=== PATIENT | male | born 1960 | race American Indian/Alaskan Native ===

== ENCOUNTER 2016-12-21 16:59 | Inpatient (IN) | payer MEDICAID ==
--- NOTE | 2016-12-21 18:15 | C.PDOC ---
History Of Present Illness 56 y/o male presents to the ED requesting alcohol and heroin detox. Pt uses daily, last use this morning 2 bags heroin intranasal, last drink [employer]. Pt also reports feeling depressed and "can't live like this anymore." Pt denies SI, HI or any other complaints. Pt has history of substance abuse and hospitalizations for depression. Pt incarcerated in past for public intoxication. Time Seen by Provider: 12/21/16 17:25 Chief Complaint (Nursing): Substance Abuse History Per: Patient History/Exam Limitations: no limitations Suicide/Self Injury Attempted (Context): None Modifying Factor(s): Alcohol, Narcotics Severity: Moderate Associated Symptoms: Depression. denies: Suicidal Thoughts Involuntary Hold By: None Recent travel outside of the [place]: No Past Medical History Reviewed: Historical Data, Nursing Documentation, Vital Signs Vital Signs: Last Vital Signs Temp 98.0 F 12/21/16 20:09 Pulse 58 L 12/21/16 20:09 Resp 16 12/21/16 20:09 BP 114/72 12/21/16 20:09 Pulse Ox 98 12/21/16 20:09 - Medical History PMH: Asthma, Depression, HTN Family History: States: Unknown Family Hx - Social History Hx Alcohol Use: Yes Hx Substance Use: Yes - Immunization History Hx Influenza Vaccination: No Review Of Systems Except As Marked, All Systems Reviewed And Found Negative. Constitutional: Negative for: Fever Cardiovascular: Negative for: Chest Pain Respiratory: Negative for: Shortness of Breath Gastrointestinal: Negative for: Vomiting, Abdominal Pain Neurological: Negative for: Headache Psych: Positive for: Depression. Negative for: Suicidal ideation Physical Exam - Physical Exam Appears: Non-toxic, No Acute Distress Skin: Warm, Dry, No Rash Head: No Atraumatic, No Normacephalic Nose: Normal Oral Mucosa: Moist Neck: Normal ROM, No Supple Chest: Symmetrical Cardiovascular: Rhythm Regular, No Murmur Respiratory: Normal Breath Sounds, No Rales, No Rhonchi, No Wheezing Extremity: Bilateral: Atraumatic Neurological/Psych: Oriented x3, Normal Speech, Normal Cognition Gait: Steady ED Course And Treatment - Laboratory Results Result Diagrams: 12/21/16 19:02 12/21/16 19:02 Lab Interpretation: No Acute Changes Interpretation Of Abnormal: ETOH 61, UDS + opiates O2 Sat by Pulse Oximetry: 98 (on room air) Pulse Ox Interpretation: Normal Progress Note: Patient evaluated in ED by Crisis. Patient accepted by Psychiatry for admission for depression. Reevaluation Time: 20:15 Reassessment Condition: Unchanged Medical Decision Making Medical Decision Making: Plan: CRISIS evaluation Disposition - Disposition Disposition: HOSPITALIZED Disposition Time: 20:15 Condition: STABLE - POA Present On Arrival: None - Clinical Impression Clinical Impression: Depression, Polysubstance abuse - Scribe Statement The provider has reviewed the documentation as recorded by the Braden Bazan Provider Attestation: All medical record entries made by the Braden were at my direction and personally dictated by me. I have reviewed the chart and agree that the record accurately reflects my personal performance of the history, physical exam, medical decision making, and the department course for this patient. I have also personally directed, reviewed, and agree with the discharge instructions and disposition.
[2016-12-21 19:15] LABS: BASO % 0.8 % (0.0-2.0); EOS # 0.2 K/uL (0.0-0.7); EOS % 2.6 % (0.0-4.0); HEMATOCRIT 45.1 % (35.0-51.0); MEAN CELL VOLUME 89.3 fL (80.0-94.0); MEAN CORPUSCULAR HEMOGLOBIN 29.4 pg (27.0-31.0); MEAN CORPUSCULAR HGB CONC 32.9 g/dL (33.0-37.0); MEAN PLATELET VOLUME 8.1 fL (7.2-11.7); MONO # 0.5 K/uL (0.0-0.8); MONO % 7.4 % (0.0-10.0); NRBC % 0.1 % (0.0-2.0); RED CELL DISTRIBUTION WIDTH 13.2 % (11.5-14.5); WHITE BLOOD COUNT 6.1 K/uL (4.8-10.8)
[2016-12-21 19:23] LABS: CHLORIDE 103 mmol/L (98-107); SODIUM 141 mmol/L (132-148)
[2016-12-21 19:24] LABS: POTASSIUM 3.5 mmol/L (3.6-5.2); URINE BILIRUBIN NEGATIVE (NEGATIVE); URINE BLOOD NEGATIVE (NEGATIVE); URINE COLOR Straw (YELLOW); URINE GLUCOSE (UA) NORMAL (Normal); URINE KETONE NEGATIVE (NEGATIVE); URINE LEUKOCYTE ESTERASE NEG Leu/uL (Negative); URINE PROTEIN NEGATIVE (NEGATIVE); URINE UROBILINOGEN NORMAL mg/dL (0.2-1.0)
[2016-12-21 19:26] LABS: ALB/GLOB RATIO 1.3 (1.0-2.1); ALKALINE PHOSPHATASE 71 U/L (38-126); ALT/SGPT 35 U/L (21-72); AST/SGOT 59 U/L (17-59); BILIRUBIN,TOTAL 0.3 mg/dL (0.2-1.3); BLOOD UREA NITROGEN 12 mg/dL (9-20); CALCIUM 8.7 mg/dl (8.6-10.4); CARBON DIOXIDE 24 mmol/L (22-30); GFR AFRICAN-AMERICAN > 60; GLUCOSE,RANDOM 78 mg/dL (75-110); TOTAL PROTEIN 7.5 g/dL (6.3-8.3)
[2016-12-21 19:27] LABS: ALCOHOL SERUM 61 mg/dl (0-10)
[2016-12-21] MEDS ORDERED: Aluminum Hydroxide/Magnesium Hydroxide Susp (30 mL) PO PRN (23:17)
[2016-12-21] MEDS ORDERED: Benzocaine/Menthol (Cepacol) Lozenge PO PRN (23:17)
[2016-12-22] MEDS: Multiple Vitamins Tab PO SCH (10:38)
--- NOTE | 2016-12-22 23:29 | PCM.PSYCH ---
Initial Psychiatric Evaluation - Initial Psychiatric Evaluation Type of Admission: Voluntary Legal Status: Capacity Chief Complaint (in patient's own words): "I wasn't taking care of myself" History of Present Illness and Precipitating Events: The pt is seen, chart reviewed and case discussed. He is a 56 yo AAM, single with 3 children, lives with his sister in , on disability for "sciatica" He is here for depressive sxs and SI. Also, he was using 10 bags of heroin intranasally x20 years "off and on." Has wdw sxs. Detox 6x, rehab once. He also drinks 4-5 shots plus 4-5 beers. Describes depressive sxs and vague SI w/o any plan. No AH but sees "spots" and is not manic or psychotic No other drugs Past psych hx: One more admission. No meds Family psych hx: Bro used cocaine and had psych illness Medical hx: DM, HTN and BPH Current Medications: Active Medications Generic Name Dose Route Start Last Admin Trade Name Freq PRN Reason Stop Dose Admin Acetaminophen 650 mg 12/21/16 23:17 Tylenol 325mg Tab PO Q4H PRN Fever greater than 101 F Al Hydrox/Mg Hydrox/Simethicone 30 ml 12/21/16 23:17 Maalox 30 Ml PO TID PRN Indigestion / Heartburn Benzocaine/Menthol 1 teodoro 12/21/16 23:17 Cepacol Sore Throat PO QID PRN Sore Throat Chlordiazepoxide 25 mg 12/21/16 22:55 Librium PO Q4H PRN Alcohol Withdrawal Chlordiazepoxide 25 mg 12/22/16 00:00 12/22/16 17:21 Librium PO 12/25/16 23:59 25 mg Q6 IQRA Administration Taper Clonidine HCl 0.1 mg 12/21/16 22:55 Catapres PO Q4H PRN Symptoms of alcohol withdrawl Diphenhydramine HCl 50 mg 12/21/16 22:50 Benadryl PO Q6 PRN Extra Pyramidal Symptoms Folic Acid 1 mg 12/22/16 10:00 12/22/16 10:37 Folic Acid PO 1 mg DAILY IQRA Administration Glipizide 5 mg 12/22/16 07:30 12/22/16 10:38 Glucotrol PO 5 mg ACB IQRA Administration Lisinopril 10 mg 12/22/16 10:00 12/22/16 10:38 Zestril PO 10 mg DAILY IQRA Administration Loperamide HCl 2 mg 12/21/16 23:17 Imodium PO Q8 PRN Diarrhea Methadone HCl 15 mg 12/22/16 10:00 12/22/16 10:37 Methadone PO 12/25/16 09:59 15 mg DAILY IQRA Administration Taper Multivitamins 1 tab 12/22/16 10:00 12/22/16 10:38 Hexavitamin PO 1 tab DAILY IQRA Administration Ondansetron HCl 4 mg 12/21/16 23:17 Zofran Tab PO Q8 PRN Nausea/Vomiting Paroxetine HCl 10 mg 12/22/16 10:00 12/22/16 10:37 Paxil PO 10 mg QAM IQRA Administration Sertraline HCl 25 mg 12/22/16 11:30 Zoloft PO DAILY IQRA Tamsulosin HCl 0.4 mg 12/22/16 18:00 12/22/16 17:22 Flomax PO 0.4 mg QPM IQRA Administration Thiamine HCl 100 mg 12/22/16 10:00 12/22/16 10:38 Vitamin B1 Tab PO 100 mg DAILY IQRA Administration Trazodone HCl 50 mg 12/21/16 21:41 12/22/16 21:42 Desyrel PO 50 mg HS PRN Administration Insomnia Past Psychiatric History - Past Psychiatric History Previous Treatment History: Inpatient Pertinent Medical Hx (Current Medical&Sleep Prob, Allergies): Allergies Allergy/AdvReac Type Severity Reaction Status Date / Time No Known Allergies Allergy Verified 12/21/16 17:38 Advair Diskus 250/50 1 cap INH DAILY 12/21/16 Albuterol HFA 1 puff INH PRN PRN 12/21/16 GlipiZIDE [Glucotrol] 1 tab PO DAILY 12/21/16 Lisinopril [Zestril] 1 tab PO DAILY 12/21/16 Tamsulosin [Flomax] 1 tab PO DAILY 12/21/16 Review of Systems - Psychiatric Psychiatric: Abnormal Sleep Pattern, Anhedonia, Anxiety, Depression. absent: Homicidal Ideation, Paranoia, Suicidal Ideation Mental Status Examination - Personal Presentation Personal Presentation: Looks older than stated age - Affect Affect: Constricted - Motor Activity Motor Activity: Calm - Reliability in Providing Information Reliability in Providing Information: Good - Speech Speech: Organized - Mood Mood: Depressed, Anxious - Formal Thought Process Formal Thought Process: No Impairment - Cognitive Functions Orientation: Person, Place, Situation, Time Sensorium: Alert Attention/Concentration: Attentive Abstract Thinking: [place] Estimate of Intelligence: Average Judgement: Intact, as evidence by: Insight regarding need for hospitalization Memory: Recent intact, as evidence by: Ability to recall events of the day, Remote intact, as evidenced by: Abilit to recall sig. life events - Risk Risk: Withdrawal, Diminished functioning - Strength & Assets Inventory Strength & Assets Inventory: Cooperative DSM 5 DX - DSM 5 DSM 5 Diagnosis: Depressive d/o - unspecified Opioid withdrawal Opioid use d/o - severe Alcohol use d/o - severe - Recommended/Plan of Treatment Treatment Recommendations and Plan of Treatment: Depression: -Zoloft -CBt and support Opioids: - Methadone detox - As needed meds - [place] for abstinence Alcohol: - Librium detox - gabapentin - [place] for abtinence - Vitamins and as needed meds Medical; - Meds continued and labs 33 min Projected ELOS: 5 days Prognosis: good w treatment Discharge Plan and Discharge Criteria: Refer to IOP Consider MAt, ie sbx
[2016-12-23] MEDS: Multiple Vitamins Tab PO SCH (09:59)
--- NOTE | 2016-12-23 14:53 | PCM.PYCHPN ---
Psychiatric Progress Note - Psychiatric Progress Note Patient seen today, length of contact: 16 min Patient Chief Complaint: "I wasn't taking care of myself" Problems Identified/Issues Discussed: The pt is seen, chart reviewed, case discussed with staff. The pt is compliant with medications and reports no side-effects. Symptoms are improving but needs more time to stabilize. After care discussed, wants to go to [facility] or [facility] for either sbx or methadone support and psychoeducation given. NM and CBT used briefly. Medication Change: Yes (detox changes daily) Medical Record Reviewed: Yes Mental Status Examination - Cognitive Function Orientation: Person, Place, Situation, Time Memory: Intact Attention: WNL Concentration: Poor Association: WNL Fund of Knowledge: WNL - Mood Mood: Depressed, Anxious - Affect Affect: Constricted - Speech Speech: Appropriate - Formal Thought Process Formal Thought Process: No Impairment - Suicidal Ideation Suicidal Ideation: No - Homicidal Ideation Homicidal Ideation: No Goal/Treatment Plan - Goal/Treatment Plan Need for Continued Stay: Discharge may exacerbated symptoms, Severe functional impairment Progress Toward Problem(s) and Goals/Treatment Plan: Depression: -Zoloft -CBt and support Opioids: - Methadone detox - As needed meds - [place] for abstinence Alcohol: - Librium detox - gabapentin - [place] for abtinence - Vitamins and as needed meds Medical; - Meds continued and labs Estimated Date of D/C: 12/27/16
[2016-12-24] MEDS: Multiple Vitamins Tab PO SCH (09:16)
--- NOTE | 2016-12-24 12:48 | PCM.PYCHPN ---
Psychiatric Progress Note - Psychiatric Progress Note Patient seen today, length of contact: 16 min Patient Chief Complaint: I am feeling depressed. Problems Identified/Issues Discussed: Patient seen and evaluated, chart reviewed and discussed with the nurse. As per the staff, pt remained isolated, withdrawn and depressed. He reports depressed mood and feelings of hopelessness and helplessness. He reports withdrawal symptoms including shakes, anxiety, headaches, joint pains and hot and cold sweats. He is tolerating withdrawal medications and denies any side effects. Supportive therapy and psychoeducation were given. Medication Change: Yes (detox changes daily) Medical Record Reviewed: Yes Mental Status Examination - Cognitive Function Orientation: Person, Place, Situation, Time Memory: Intact Attention: WNL Concentration: Poor Association: WNL Fund of Knowledge: Poor - Mood Mood: Depressed, Anxious - Affect Affect: Constricted - Speech Speech: Appropriate - Formal Thought Process Formal Thought Process: Paranoia - Suicidal Ideation Suicidal Ideation: No - Homicidal Ideation Homicidal Ideation: No Goal/Treatment Plan - Goal/Treatment Plan Need for Continued Stay: Discharge may exacerbated symptoms, Severe functional impairment Progress Toward Problem(s) and Goals/Treatment Plan: Depressive d/o - unspecified Opioid withdrawal Opioid use d/o - severe Alcohol use d/o - severe - Recommended/Plan of Treatment Treatment Recommendations and Plan of Treatment: Depression: -Zoloft -CBt and support Opioids: - Methadone detox - As needed meds - [place] for abstinence Alcohol: - Librium detox - gabapentin - [place] for abtinence - Vitamins and as needed meds Medical; - Meds continued and labs Estimated Date of D/C: 12/27/16 - Smoking Cessation Smoking Cessation Initiated: No
[2016-12-25 07:35] VITALS: O2SAT 99
[2016-12-25] MEDS: Multiple Vitamins Tab PO SCH (09:13)
[2016-12-25] MEDS ORDERED: Magnesium Hydroxide Susp 30 ml UD PO ONE (20:16)
--- NOTE | 2016-12-25 22:04 | PCM.PYCHPN ---
Psychiatric Progress Note - Psychiatric Progress Note Patient seen today, length of contact: 16 min Patient Chief Complaint: I'm still feeling depressed Problems Identified/Issues Discussed: Patient seen and evaluated, chart reviewed and discussed with the nurse. The patient reports a bit improvement in his mood but still reports depressed mood and remained isolative and withdrawn. He still reports withdrawal symptoms including shakes, anxiety, headaches and sweating. As per the nurse patient remained depressed and withdrawn, however he denies any suicidal ideation or homicidal ideation. He is taking medications and denies any side effects. Supportive therapy and psychoeducation were given. Medication Change: Yes (detox changes daily) Medical Record Reviewed: Yes Mental Status Examination - Cognitive Function Orientation: Person, Place, Situation, Time Memory: Intact Attention: WNL Concentration: Poor Association: WNL Fund of Knowledge: WNL - Mood Mood: Depressed, Anxious - Affect Affect: Constricted - Speech Speech: Appropriate - Formal Thought Process Formal Thought Process: No Impairment - Suicidal Ideation Suicidal Ideation: No - Homicidal Ideation Homicidal Ideation: No Goal/Treatment Plan - Goal/Treatment Plan Need for Continued Stay: Discharge may exacerbated symptoms, Severe functional impairment Progress Toward Problem(s) and Goals/Treatment Plan: Depressive d/o - unspecified Opioid withdrawal Opioid use d/o - severe Alcohol use d/o - severe Depression: -Zoloft -CBt and support Opioids: - Methadone detox - As needed meds - [place] for abstinence Alcohol: - Librium detox - gabapentin - [place] for abtinence - Vitamins and as needed meds Medical; - Meds continued and labs Estimated Date of D/C: 12/27/16 - Smoking Cessation Smoking Cessation Initiated: No
--- NOTE | 2016-12-26 13:40 | PCM.PYCHPN ---
Psychiatric Progress Note - Psychiatric Progress Note Patient seen today, length of contact: 17 min Patient Chief Complaint: I'm still feeling depressed Problems Identified/Issues Discussed: F/u with pt at 14:00. 56 yo M says when he first arrived he was feeling better and happy, however today feels like he did before he got here, depressed and in a slump. Today he is not feeling social, feels like he is going backward with his progress. Before admitted had suicidal ideation without plan, currently denies suicidal ideation. Did not sleep through past 2 nights, falls asleep 5am, stays asleep 20 minutes on and off. Night sweats 2x, negative for last night. Feels people are out to get him but not one particular person can be named. Reports 2 days ago seeing white spots, lasting few seconds. Denies hearing anything that is not there, shortness of breath, headache, cold, congestion, chills. Denies any other complaints, withdrawal symptoms, new side effects to medications. Pt plans after leaving include staying at [facility] and seeing psychiatrist. Medication Change: Yes (detox changes daily, increase Zoloft) Medical Record Reviewed: Yes Mental Status Examination - Cognitive Function Orientation: Person, Place, Situation, Time Memory: Intact Attention: WNL Concentration: Poor Association: WNL Fund of Knowledge: Poor - Mood Mood: Depressed, Anxious - Affect Affect: Constricted - Speech Speech: Appropriate - Formal Thought Process Formal Thought Process: Hallucinations, Delusions - Suicidal Ideation Suicidal Ideation: No - Homicidal Ideation Homicidal Ideation: No Goal/Treatment Plan - Goal/Treatment Plan Need for Continued Stay: Discharge may exacerbated symptoms, Severe functional impairment Progress Toward Problem(s) and Goals/Treatment Plan: Depressive d/o - unspecified Opioid withdrawal Opioid use d/o - severe Alcohol use d/o - severe Depression: -Zoloft -CBt and support Opioids: - Methadone detox - As needed meds - [place] for abstinence Alcohol: - Librium detox - gabapentin - [place] for abtinence - Vitamins and as needed meds Medical; - Meds continued and labs Estimated Date of D/C: 12/27/16 - Smoking Cessation Smoking Cessation Initiated: No
[2016-12-27] MEDS: Multiple Vitamins Tab PO SCH ×2 (10:41→10:43)
--- NOTE | 2016-12-27 10:53 | PCM.PYCHPN ---
Psychiatric Progress Note - Psychiatric Progress Note Patient seen today, length of contact: 16 min Patient Chief Complaint: I am feeling depressed. Problems Identified/Issues Discussed: Patient seen and evaluated, chart reviewed and discussed with the nurse. Pt reports improvement in his mood but remained isolated, withdrawn and depressed. He reports improvement in the withdrawal symptoms but still reports anxiety, joint pains and hot and cold sweats. He is tolerating medications and denies any side effects. Supportive therapy and psychoeducation were given. Medication Change: Yes (detox changes daily, increase zoloft) Medical Record Reviewed: Yes Mental Status Examination - Cognitive Function Orientation: Person, Place, Situation, Time Memory: Intact Attention: WNL Concentration: Poor Association: WNL Fund of Knowledge: Poor - Mood Mood: Depressed, Anxious - Affect Affect: Constricted, Depressed - Speech Speech: Appropriate - Formal Thought Process Formal Thought Process: No Impairment - Suicidal Ideation Suicidal Ideation: No - Homicidal Ideation Homicidal Ideation: No Goal/Treatment Plan - Goal/Treatment Plan Need for Continued Stay: Discharge may exacerbated symptoms, Severe functional impairment Progress Toward Problem(s) and Goals/Treatment Plan: Major Depressive Disorder recurrent severe without psychotic features -CBt and support -Zoloft Opioid use disorder severe - Methadone detox - As needed meds - [place] for abstinence Alcohol use disorder severe - Librium detox - gabapentin - [place] for abtinence - Vitamins and as needed meds Estimated Date of D/C: 12/28/16 - Smoking Cessation Smoking Cessation Initiated: No
[2016-12-28] MEDS: Multiple Vitamins Tab PO SCH (09:26)
--- NOTE | 2016-12-28 13:23 | PCM.PYCHPN ---
Psychiatric Progress Note - Psychiatric Progress Note Patient seen today, length of contact: 16 min Patient Chief Complaint: I am feeling a little better. Problems Identified/Issues Discussed: Patient seen and evaluated, chart reviewed and discussed with the nurse. As per staff patient remained isolated, withdrawn and depressed. However patient reports improvement in his mood and reports improvement in the withdrawal symptoms. He still isolated and withdrawn but denies any suicidal ideation. He is in the processes of stabilization, he is taking medications and denies any side effects. Supportive therapy and psychoeducation were given. Medication Change: Yes (detox changes daily, increase zoloft) Medical Record Reviewed: Yes Mental Status Examination - Cognitive Function Orientation: Person, Place, Situation, Time Memory: Intact Attention: WNL Concentration: Poor Association: WNL Fund of Knowledge: Poor - Mood Mood: Depressed, Anxious - Affect Affect: Constricted, Depressed - Speech Speech: Appropriate - Formal Thought Process Formal Thought Process: No Impairment - Suicidal Ideation Suicidal Ideation: No - Homicidal Ideation Homicidal Ideation: No Goal/Treatment Plan - Goal/Treatment Plan Need for Continued Stay: Discharge may exacerbated symptoms, Severe functional impairment Progress Toward Problem(s) and Goals/Treatment Plan: Major Depressive Disorder recurrent severe without psychotic features -CBt and support -Zoloft to 200 mg daily Opioid use disorder severe - Methadone detox - As needed meds - [place] for abstinence Alcohol use disorder severe - Librium detox - gabapentin - [place] for abtinence - Vitamins and as needed meds Estimated Date of D/C: 12/29/16 - Smoking Cessation Smoking Cessation Initiated: No
[2016-12-29] MEDS: Multiple Vitamins Tab PO SCH (11:21)
--- NOTE | 2016-12-29 13:19 | PCM.PYCHPN ---
Psychiatric Progress Note - Psychiatric Progress Note Patient seen today, length of contact: 17 min Patient Chief Complaint: I am feeling little better. Problems Identified/Issues Discussed: Patient seen and evaluated. Chart reviewed and discussed with the nurse. Patient reports feeling agitated and conflicted about going back to using heroin after discharge. He is also concerned that other medications are interacting with his methadone treatment. Patient also complains of constipation. He denies any homicidal or suicidal ideation or auditory and visual hallucination. He does admit to a new onset of double vision and white spots. Pt does admit to persecutory delusions. Patient reports that he sleeps for 1-2 hours a night. He reports that his appetite is good and he has no side effects to his medications. Supportive therapy and psychoeducation was given. Medication Change: Yes (detox changes daily, increase zoloft) Medical Record Reviewed: Yes Mental Status Examination - Cognitive Function Orientation: Person, Place, Situation, Time Memory: Intact Attention: WNL Concentration: Poor Association: WNL Fund of Knowledge: Poor - Mood Mood: Depressed, Anxious - Affect Affect: Constricted, Depressed - Speech Speech: Appropriate - Formal Thought Process Formal Thought Process: No Impairment - Suicidal Ideation Suicidal Ideation: No - Homicidal Ideation Homicidal Ideation: No Goal/Treatment Plan - Goal/Treatment Plan Need for Continued Stay: Discharge may exacerbated symptoms, Severe functional impairment Progress Toward Problem(s) and Goals/Treatment Plan: Major Depressive Disorder recurrent severe without psychotic features -CBt and support -Zoloft to 200 mg daily Opioid use disorder severe - Methadone detox - As needed meds - [place] for abstinence Alcohol use disorder severe - Librium detox - gabapentin - [place] for abtinence - Vitamins and as needed meds Estimated Date of D/C: 12/29/16
[2016-12-30] MEDS: Multiple Vitamins Tab PO SCH (10:13)
--- NOTE | 2016-12-30 10:24 | PCM.PYCHPN ---
Psychiatric Progress Note - Psychiatric Progress Note Patient seen today, length of contact: 15 min Patient Chief Complaint: I am feeling little better. Problems Identified/Issues Discussed: Patient is seen and evaluated. Chart reviewed and discussed with the nurse. Pt says that his mood has improved since yesterday. He does admit to anxiety and is isolating himself due to preoccupied thoughts of fear of relapsing after discharge. Patient denies suicidal and homicidal ideation, visual or auditory hallucinations or persecutory delusions. Patient is sleeping better and says that Trazodone is helping. His appetite is good. Patient will be attending an outpatient rehabilitation facility and denies any medication side effects. Supportive therapy and psychotherapy were given Medication Change: Yes (Start Remeron, increase Zoloft) Medical Record Reviewed: Yes Mental Status Examination - Cognitive Function Orientation: Person, Place, Situation, Time Memory: Intact Attention: WNL Concentration: Poor Association: WNL Fund of Knowledge: Poor - Mood Mood: Depressed, Anxious - Affect Affect: Constricted, Depressed - Speech Speech: Appropriate - Formal Thought Process Formal Thought Process: No Impairment - Suicidal Ideation Suicidal Ideation: No - Homicidal Ideation Homicidal Ideation: No Goal/Treatment Plan - Goal/Treatment Plan Need for Continued Stay: Discharge may exacerbated symptoms, Severe functional impairment Progress Toward Problem(s) and Goals/Treatment Plan: Major Depressive Disorder recurrent severe without psychotic features -CBT and support -Zoloft 200 mg daily -Remeron 15 mg by mouth daily at bedtime -Trazodone 100 mg by mouth daily at bedtime Opioid use disorder severe - Methadone detox - As needed meds - [place] for abstinence Alcohol use disorder severe - Librium detox - [place] for abtinence - Vitamins and as needed meds Estimated Date of D/C: 12/29/16
[2016-12-31] MEDS: Multiple Vitamins Tab PO SCH (09:16)
[2017-01-01] MEDS: Multiple Vitamins Tab PO SCH (09:05)
--- NOTE | 2017-01-02 01:56 | PCM.PYCHPN ---
Psychiatric Progress Note - Psychiatric Progress Note Patient seen today, length of contact: 15 min Patient Chief Complaint: i didn't give [facility] a chance. i need to work the program Problems Identified/Issues Discussed: SANTY symptom management Medical Problems: nothing acute Diagnostic Results: reviewed Medication Change: No Medical Record Reviewed: Yes Mental Status Examination - Cognitive Function Orientation: Person, Place, Situation, Time Memory: Intact Attention: WNL Concentration: Poor Association: WNL Fund of Knowledge: WNL - Mood Mood: Depressed, Anxious - Affect Affect: Constricted, Depressed - Speech Speech: Appropriate - Formal Thought Process Formal Thought Process: No Impairment - Suicidal Ideation Suicidal Ideation: No - Homicidal Ideation Homicidal Ideation: No Goal/Treatment Plan - Goal/Treatment Plan Need for Continued Stay: Discharge may exacerbated symptoms, Severe functional impairment Progress Toward Problem(s) and Goals/Treatment Plan: not feeling hopeless, helpless or worthless Estimated Date of D/C: 12/29/16 - Smoking Cessation Smoking Cessation Initiated: No
--- NOTE | 2017-01-02 02:00 | PCM.PYCHPN ---
Psychiatric Progress Note - Psychiatric Progress Note Patient seen today, length of contact: 15 min Patient Chief Complaint: ii need to get out of here Problems Identified/Issues Discussed: triggers for relapsed PAWS Medical Problems: nothing acute Diagnostic Results: reviewed DSM 5 Symptoms Update: sleeping but some nightmares Medication Change: No Medical Record Reviewed: Yes Mental Status Examination - Cognitive Function Orientation: Person, Place, Situation, Time Memory: Intact Attention: WNL Concentration: Poor Association: WNL Fund of Knowledge: WNL - Mood Mood: Depressed, Anxious - Affect Affect: Constricted, Depressed - Speech Speech: Appropriate - Formal Thought Process Formal Thought Process: No Impairment - Suicidal Ideation Suicidal Ideation: No - Homicidal Ideation Homicidal Ideation: No Goal/Treatment Plan - Goal/Treatment Plan Need for Continued Stay: Remain at risks for inpatient hospitalization, Discharge may exacerbated symptoms, Severe functional impairment Progress Toward Problem(s) and Goals/Treatment Plan: thinking of future not the past Estimated Date of D/C: 12/29/16 - Smoking Cessation Smoking Cessation Initiated: No
[2017-01-02] MEDS: Multiple Vitamins Tab PO SCH (09:35)
--- NOTE | 2017-01-02 10:32 | PCM.PYCHPN ---
Psychiatric Progress Note - Psychiatric Progress Note Patient seen today, length of contact: 15 min Patient Chief Complaint: I am feeling little better. Problems Identified/Issues Discussed: Patient was seen and evaluated. Chart reviewed and discussed with the nurse. Patient was very pleasant and cooperative and says he hasnt felt this good in a long time. Last night Pt got out of bed to go get a drink of water, then felt dizzy and fell, hitting his head on the kitchen floor. This has never happened before. Today his dizziness has resolved and he denies headaches or acute change in metal status. His double vision has resolved and he denies any new change in vision. Pt denies wanting to hurt himself or others, persecutory delusions or visual and auditory hallucinations. Patient is still isolating himself and reports feeling anxious. His sleep is improved and appetite is good. He denies medication side effects. Supportive therapy and psycheducation were given. Medication Change: No Medical Record Reviewed: Yes Mental Status Examination - Cognitive Function Orientation: Person, Place, Situation, Time Memory: Intact Attention: WNL Concentration: Poor Association: WNL Fund of Knowledge: WNL - Mood Mood: Depressed, Anxious - Affect Affect: Constricted, Depressed - Speech Speech: Appropriate - Formal Thought Process Formal Thought Process: No Impairment - Suicidal Ideation Suicidal Ideation: No - Homicidal Ideation Homicidal Ideation: No Goal/Treatment Plan - Goal/Treatment Plan Need for Continued Stay: Remain at risks for inpatient hospitalization, Discharge may exacerbated symptoms, Severe functional impairment Progress Toward Problem(s) and Goals/Treatment Plan: Major Depressive Disorder recurrent severe without psychotic features -CBT and support -Zoloft 200 mg daily -Remeron 15 mg by mouth daily at bedtime -Trazodone 100 mg by mouth daily at bedtime Opioid use disorder severe - Methadone detox - As needed meds - SD for abstinence Alcohol use disorder severe - Librium detox - SD for abtinence - Vitamins and as needed meds Estimated Date of D/C: 12/29/16
[2017-01-03 08:06] VITALS: BP 113/69; PULSE 61; RESP 19; TEMP 98.2
[2017-01-03] MEDS: Multiple Vitamins Tab PO SCH (09:42)
--- NOTE | 2017-01-03 10:03 | PCM.PYCHDC ---
Mental Status Examination - Mental Status Examination Orientation: Person, Place, Situation, Time Memory: Intact Mood: Neutral Affect: Constricted Speech: Soft Attention: WNL Concentration: WNL Association: WNL Fund of Knowledge: WNL Formal Thought Process: No Impairment Description of patient's judgement and insight: good, fair Psychotic Thoughts and Behaviors: denies any AVH Suicidal Ideation: No Current Homicidal Ideation?: No Discharge Summary - Discharge Note Reason for Hospitalization: He is a 56 yo AAM, single with 3 children, lives with his sister in , on disability for "sciatica" He is here for depressive sxs and SI. Also, he was using 10 bags of heroin intranasally x20 years "off and on." Has wdw sxs. Detox 6x, rehab once. He also drinks 4-5 shots plus 4-5 beers. Describes depressive sxs and vague SI w/o any plan. No AH but sees "spots" and is not manic or psychotic No other drugs Past psych hx: One more admission. No meds Laboratory Data: Abnormal Lab Results 01/03/17 07:43 POC Glucose (mg/dL) 129 H Consultations:: List each consultation separately and include: 1. Reason for request. 2. Findings. 3. Follow-up Summary of Hospital Course include:: 1. Description of specific treatment plan utilized for patients during their course of treatmen. 2. Summarize the time- course for resolution of acute symptoms and/or regressed behaviors. 3. Describe issues identified and worked on during hospitalization. 4. Describe medication utilized. 5. Describe medical problems identified and treated. 6. Reassessment of suicide risk Summary of Hospital Course: During the course of his stay, patient (pt) started progressively improving and he no longer remained irritable, depressed, and suicidal. His mood was improved and he started attending groups and meetings and started socializing. Patient denied any feelings of hopelessness, helplessness, and worthlessness, denied any problem with the sleep or appetite, denied suicidal ideation or homicidal ideation. Pt denied any auditory or visual hallucinations. Some changes were made in his current medications and patient was discharged on following medications. He tolerated these medications very well and denied any side effects. - Final Diagnosis (DSM 5) Condition upon Discharge: STABLE DSM 5: Major Depressive Disorder recurrent severe without psychotic features Opioid use disorder severe Alcohol use disorder severe Disposition: HOME/ ROUTINE Follow-up Treatment Plan: Education: Pt was educated and counseled about the risks and benefits of taking and not taking medications. Pt was educated and counseled about the risks of drinking and abusing drugs. Pt was educated and counseled to go to the ER or call 911 if pt develop suicidal ideation or homicidal ideation, worsening of symptoms or severe side effects of the meds. Prescriptions/Medication Reconciliation: GlipiZIDE [Glucotrol] 5 mg PO ACB #30 tab Lisinopril [Zestril] 10 mg PO DAILY #30 tab Mirtazapine [Remeron] 15 mg PO HS #30 tab Sertraline [Zoloft] 100 mg PO DAILY #60 tab Tamsulosin [Flomax] 0.4 mg PO QPM #30 cap traZODone [Desyrel] 100 mg PO HS PRN #30 tab PRN Reason: Insomnia - Smoking Cessation Smoking Cessation Medication prescribed: No - Antipsychotic Medications Pt discharged on 2 or more routine antipsychotic medications: No
== END 2017-01-03 12:45 | disposition home or self-care (01) | DRG 430 ==
LOC: C.ER 16:59 → C.5E 20:16
PROVIDERS: ADMIT Psychiatry & Neurology Psychiatry; ATTEND Psychiatry & Neurology Psychiatry
PROC: HZ2ZZZZ Detoxification Services for Substance Abuse Treatment (ICD-10-PCS; principal; 2016-12-21)
PROC: HZ32ZZZ Individual Counseling for Substance Abuse Treatment, Cognitive-Behavioral (ICD-10-PCS; 2016-12-21)
PROC: HZ36ZZZ Individual Counseling for Substance Abuse Treatment, Psychoeducation (ICD-10-PCS; 2016-12-21)
PROC: HZ59ZZZ Individual Psychotherapy for Substance Abuse Treatment, Supportive (ICD-10-PCS; 2016-12-21)
DX: F33.2 Major depressive disorder, recurrent severe without psychotic features (principal); R45.851 Suicidal ideations; E11.9 Type 2 diabetes mellitus without complications; F10.230 Alcohol dependence with withdrawal, uncomplicated; F11.23 Opioid dependence with withdrawal; J45.909 Unspecified asthma, uncomplicated; I10 Essential (primary) hypertension; M54.30 Sciatica, unspecified side; N40.0 Benign prostatic hyperplasia without lower urinary tract symptoms; Y90.3 Blood alcohol level of 60-79 mg/100 ml

== ENCOUNTER 2017-05-15 13:15 | Inpatient (IN) | payer MEDICAID ==
[2017-05-15 14:15] LABS: BASO % 0.9 % (0.0-2.0); EOS # 0.1 K/uL (0.0-0.7); EOS % 1.8 % (0.0-4.0); HEMATOCRIT 42.9 % (35.0-51.0); LYMPH # 1.6 K/uL (1.0-4.3); LYMPH % 39.5 % (20.0-40.0); MEAN CELL VOLUME 88.1 fL (80.0-94.0); MEAN CORPUSCULAR HEMOGLOBIN 29.7 pg (27.0-31.0); MEAN CORPUSCULAR HGB CONC 33.7 g/dL (33.0-37.0); MEAN PLATELET VOLUME 7.3 fL (7.2-11.7); MONO # 0.4 K/uL (0.0-0.8); MONO % 10.4 % (0.0-10.0); NRBC % 0.1 % (0.0-2.0)
[2017-05-15 14:17] LABS: RBC URINE 1 /hpf (0-3); URINE BILIRUBIN NEGATIVE (NEGATIVE); URINE BLOOD NEGATIVE (NEGATIVE); URINE COLOR Yellow (YELLOW); URINE GLUCOSE (UA) NORMAL (Normal); URINE KETONE NEGATIVE (NEGATIVE); URINE LEUKOCYTE ESTERASE NEG Leu/uL (Negative); URINE PROTEIN NEGATIVE (NEGATIVE); WBC URINE 1 /hpf (0-5)
[2017-05-15 14:33] LABS: ALB/GLOB RATIO 1.3 (1.0-2.1); ALCOHOL SERUM < 10 mg/dl (0-10); ALKALINE PHOSPHATASE 59 U/L (38-126); ALT/SGPT 47 U/L (21-72); AST/SGOT 38 U/L (17-59); BILIRUBIN,TOTAL 0.6 mg/dL (0.2-1.3); BLOOD UREA NITROGEN 14 mg/dL (9-20); CALCIUM 8.9 mg/dl (8.6-10.4); CARBON DIOXIDE 27 mmol/L (22-30); CHLORIDE 102 mmol/L (98-107); GFR AFRICAN-AMERICAN > 60; GLUCOSE,RANDOM 104 mg/dL (75-110); POTASSIUM 4.1 mmol/L (3.6-5.2); SODIUM 142 mmol/L (132-148)
--- NOTE | 2017-05-15 16:35 | C.PDOC ---
History Of Present Illness 56 y/o male presents to the ED presents to the ED requesting heroin and detox. Patient states last use was last night. Patient states he has already been prescreened. Patient reports feeling nauseous and shaky. Otherwise, he denies fever, chills, suicidal/homicidal ideation. Time Seen by Provider: 05/15/17 13:50 Chief Complaint (Nursing): Substance Abuse History Per: Patient History/Exam Limitations: no limitations Onset/Duration Of Symptoms: Hrs Current Symptoms Are (Timing): Still Present Suicide/Self Injury Attempted (Context): None Modifying Factor(s): Alcohol, Other (heroin ) Associated Symptoms: denies: Suicidal Thoughts, Suicidal Plan Involuntary Hold By: None Recent travel outside of the [place]: No Additional History Per: Patient Past Medical History Reviewed: Historical Data, Nursing Documentation, Vital Signs Vital Signs: Last Vital Signs Temp 98.2 F 05/15/17 19:45 Pulse 63 05/15/17 19:45 Resp 18 05/15/17 19:45 BP 107/67 05/15/17 19:45 Pulse Ox 98 05/15/17 19:45 - Medical History PMH: Asthma, Depression, Diabetes (per pt), Hepatitis (C), HTN Surgical History: No Surg Hx - [facility] Procedures DETOXIFICATION SERVICES FOR SUBSTANCE ABUSE TREATMENT (12/21/16) INDIV INSTRUMENT AND CONTROLS TECHNICIAN FOR SUBSTANCE ABUSE TREATMENT, PSYCHOEDUCATION (12/21/16) INDIV INSTRUMENT AND CONTROLS TECHNICIAN FOR SUBSTANCE ABUSE, COGNITIVE BEHAVIORAL (12/21/16) INDIV PSYCHOTHERAPY FOR SUBSTANCE ABUSE TREATMENT, SUPPORT (12/21/16) Family History: States: Unknown Family Hx - Social History Hx Alcohol Use: Yes Hx Substance Use: Yes - Immunization History Hx Influenza Vaccination: No Review Of Systems Psych: Positive for: Withdrawal, Other (+heroin and alcohol detox ) Physical Exam - Physical Exam Appears: Non-toxic, No Acute Distress Skin: Normal Color, Warm, Dry Eye(s): bilateral: Normal Inspection Oral Mucosa: Moist Neck: Normal ROM, Supple Chest: Symmetrical, No Deformity, No Tenderness Cardiovascular: Rhythm Regular, No Murmur Respiratory: Normal Breath Sounds, No Rales, No Rhonchi, No Wheezing Back: Normal Inspection, No Vertebral Tenderness, No Paraspinal Tenderness Extremity: Normal ROM, Capillary Refill (less than 2 seconds ) Neurological/Psych: Normal Speech, Normal Cognition Gait: Steady ED Course And Treatment - Laboratory Results Result Diagrams: 05/15/17 14:07 05/15/17 14:07 O2 Sat by Pulse Oximetry: 100 (on RA) Pulse Ox Interpretation: Normal Progress Note: labs ordered and reviewed. Patient received Librium PO and Catapres PO. Patient was medically cleared and accepted under Dr. Chao's care. Disposition - Disposition Disposition: HOSPITALIZED Disposition Time: 16:33 Condition: STABLE - Clinical Impression Clinical Impression: Drug dependence, Alcohol dependence - PA / COMPOSING MACHINE OPERATOR / Resident Statement MD/DO has reviewed & agrees with the documentation as recorded. - Scribe Statement The provider has reviewed the documentation as recorded by the Scribe (Ana Maria More) All medical record entries made by the Scribe were at my direction and personally dictated by me. I have reviewed the chart and agree that the record accurately reflects my personal performance of the history, physical exam, medical decision making, and the department course for this patient. I have also personally directed, reviewed, and agree with the discharge instructions and disposition.
--- NOTE | 2017-05-15 16:47 | PCM.BM ---
<Mandie Huggins - Last Filed: 05/15/17 16:46> Treatment Plan Problems - Problems identified on initial assessmt Potential for alcohol withdrawal Date Initiated: 05/15/17 Time Initiated: 16:46 Assessment reference: NA Status: Active Priority: 1 Potential for opiate withdrawal Date Initiated: 05/15/17 Time Initiated: 16:47 Assessment reference: NA Status: Active Priority: 2 Treatment assets and liabiliti Patient Assests: ADL independent, negotiates basic needs, cognitively intact Patient Liabilities: substance abuse, medical problems - Milieu Protocol Maintain good personal hygiene: daily Encourage regular showers, daily Remind patient to perform daily oral care, daily Assist patient to perform ADL's Conduct patient checks and document Observation sheet: Q15 minutes Maintain personal safety: every shift Educate patient to report safety concerns to staff, every shift Monitor environment for contraband/sharps Medication safety: Monitor for expected outcome, potential side effects: every shift, Assess barriers to learning: every shift, Assess readiness for medication education: every shift <Elizabeth Sheets - Last Filed: 05/16/17 14:06> Family Contact Family involvement: Famliy/SO not involved Family contact: Patient declines to allow family contact at present - Goals for Treatment Patient goals for treatment: Complete detox and transition to outpatient co- occurring treatment program. Discharge/Continuing Care - Education Needs Education Needs: Patient Medication, Patient Diagnosis/Disease Process, Patient Coping Skills, Patient Anger Management skills, Patient Placement options, Patient Community resources - Discharge Discharge Criteria: No longer exhibiting s/s of withdrawal, Reduction of target symptoms Discharge to:: With Family - Treatment Team Participation Patient/Family/SO Statement: 05/16/17 14:08 "I wanna go to the program across the street to have my meds taken care of". Discussed with Family/SO: No Was Patient/Family/SO present at Treatment Team Meeting: Yes <Lilliam Chao - Last Filed: 05/17/17 08:52> - Diagnosis (1) Opioid use disorder, severe, dependence Status: Acute Interventions: 05/17/17 08:51 * Assess 7x/week regarding severity of withdrawal * Educate regarding risks, benefits, side effects and alternatives of medications * Use Motivational Interviewing for abstinence * Use CBT for relapse prevention * Medication management for withdrawal symptoms * Encourage medication assisted treatment * (2) Alcohol dependence Status: Acute Interventions: 05/17/17 08:51 * Assess 7x/week regarding severity of withdrawal * Educate regarding risks, benefits, side effects and alternatives of medications * Use Motivational Interviewing for abstinence * Use CBT for relapse prevention * Medication management for withdrawal symptoms * Encourage medication assisted treatment *
[2017-05-15] MEDS ORDERED: Buprenorphine Hydrochloride 2 mg SL ONE ×2 (17:24→18:30)
[2017-05-16] MEDS: Buprenorphine Hydrochloride 2 mg SL SCH (09:39)
--- NOTE | 2017-05-16 12:34 | PCM.PSYCH ---
Initial Psychiatric Evaluation - Initial Psychiatric Evaluation Type of Admission: Voluntary Legal Status: Capacity Chief Complaint (in patient's own words): "I relapsed" History of Present Illness and Precipitating Events: The pt is seen, chart reviewed and case discussed. He is known from previous admission. He is a 56 yo AAM, single with 3 children, still lives with his sister in , on disability for "sciatica" He is here for opioid detox this time. He claims he was using 10 bags of heroin intranasally x20 years "off and on," and that he relapsed 2-3 days after discharge from last time. He admits to not going to any program. Has wdw sxs. Detox 6x, rehab once. He also used to drink 4-5 shots plus 4-5 beers but he denies it now. Describes depressive sxs but mild and agrees to take zoloft again No jorge or psychosis No other drugs Past psych hx: Two admissions. No suicide attempts Family psych hx: Bro used cocaine and had psych illness Medical hx: DM, HTN and BPH Current Medications: Active Medications Generic Name Dose Route Start Last Admin Trade Name Freq PRN Reason Stop Dose Admin Aspirin 81 mg 05/16/17 10:00 05/16/17 09:35 Aspirin Chewable PO 81 mg DAILY IQRA Administration Buprenorphine HCl 8 mg 05/16/17 10:00 05/16/17 09:39 Subutex SL 05/20/17 09:59 8 mg DAILY IQRA Administration Taper Glyburide 5 mg 05/16/17 10:00 05/16/17 09:36 Micronase PO 5 mg QAM IQRA Administration Hydroxyzine HCl 50 mg 05/15/17 17:34 Atarax PO Q6H PRN Anxiety Ibuprofen 600 mg 05/15/17 17:26 Motrin Tab PO Q6H PRN Pain, moderate (4-7) Lisinopril 10 mg 05/16/17 10:00 05/16/17 09:36 Zestril PO 10 mg DAILY IQRA Administration Metformin HCl 500 mg 05/15/17 18:00 05/16/17 09:35 Glucophage PO 500 mg BID IQRA Administration Mirtazapine 30 mg 05/16/17 22:00 Remeron PO HS IQRA Sertraline HCl 50 mg 05/16/17 10:00 05/16/17 09:35 Zoloft PO 50 mg DAILY IQRA Administration Tamsulosin HCl 0.8 mg 05/15/17 22:00 05/15/17 21:29 Flomax PO 0.8 mg HS IQRA Administration Trazodone HCl 100 mg 05/15/17 17:25 05/15/17 21:28 Desyrel PO 100 mg HS PRN Administration Insomnia Past Psychiatric History - Past Psychiatric History Previous Treatment History: Inpatient Pertinent Medical Hx (Current Medical&Sleep Prob, Allergies): Allergies Allergy/AdvReac Type Severity Reaction Status Date / Time No Known Allergies Allergy Verified 05/15/17 13:20 Advair Diskus 250/50 1 cap INH DAILY 12/21/16 Albuterol HFA 1 puff INH PRN PRN 12/21/16 GlipiZIDE [Glucotrol] 1 tab PO DAILY 12/21/16 Lisinopril [Zestril] 1 tab PO DAILY 12/21/16 Tamsulosin [Flomax] 1 tab PO DAILY 12/21/16 GlipiZIDE [Glucotrol] 5 mg PO ACB #30 tab 01/03/17 Lisinopril [Zestril] 10 mg PO DAILY #30 tab 01/03/17 Mirtazapine [Remeron] 15 mg PO HS #30 tab 01/03/17 Sertraline [Zoloft] 100 mg PO DAILY #60 tab 01/03/17 Tamsulosin [Flomax] 0.4 mg PO QPM #30 cap 01/03/17 traZODone [Desyrel] 100 mg PO HS PRN #30 tab 01/03/17 Review of Systems - Psychiatric Psychiatric: Abnormal Sleep Pattern, Anhedonia, Anxiety, Difficulty Concentrating, Irritability. absent: Hallucinations, Homicidal Ideation, Suicidal Ideation Mental Status Examination - Personal Presentation Personal Presentation: Looks stated age - Affect Affect: Constricted - Motor Activity Motor Activity: Calm - Reliability in Providing Information Reliability in Providing Information: Good - Speech Speech: Organized - Mood Mood: Anxious - Formal Thought Process Formal Thought Process: No Impairment - Cognitive Functions Orientation: Person, Place, Situation, Time Sensorium: Alert Attention/Concentration: Attentive Estimate of Intelligence: Average Judgement: Intact, as evidence by: Insight regarding need for hospitalization Memory: Recent intact, as evidence by: Ability to recall events of the day, Remote intact, as evidenced by: Abilit to recall sig. life events - Risk Risk: Withdrawal, Diminished functioning - Strength & Assets Inventory Strength & Assets Inventory: Cooperative - Limitations Limitations: Living alone, Other DSM 5 DX - DSM 5 DSM 5 Diagnosis: Opioid withdrawal Opioid use d/o - severe Depressive d/o - unspecified Alcohol use d/o in early remission - Recommended/Plan of Treatment Treatment Recommendations and Plan of Treatment: Opioids: Subutex detox As needed medications Gabapentin for augmentation Attend groups and activities Supportive therapy and psychoeducation [place] for abstinence CBT for relapse prevention Encourage MAT Refer to rehab or IOP Attend self-help groups as well Alcohol: CBT for relapse prevention medical issues: Continue meds Consult as needed Depressive d/o: He agreed to resume zoloft CBT and supportive tx 34 min Projected ELOS: 4-5 days Prognosis: good with treatment - Smoking Cessation Smoking Cessation Initiated: Yes
[2017-05-17] MEDS: Buprenorphine Hydrochloride 2 mg SL SCH (10:09)
--- NOTE | 2017-05-17 11:22 | PCM.PYCHPN ---
Psychiatric Progress Note - Psychiatric Progress Note Patient seen today, length of contact: 16 min Patient Chief Complaint: "I am so so" Problems Identified/Issues Discussed: He is seen, chart reviewed and case discussed Support and psychoed given Detox is improving After care discussed [place] and CBT used Medication Change: Yes Medical Record Reviewed: Yes Mental Status Examination - Cognitive Function Orientation: Person, Place, Situation, Time Memory: Intact Attention: WNL Concentration: WNL Association: WNL Fund of Knowledge: WNL - Mood Mood: Anxious - Affect Affect: Constricted - Speech Speech: Appropriate - Formal Thought Process Formal Thought Process: No Impairment - Suicidal Ideation Suicidal Ideation: No - Homicidal Ideation Homicidal Ideation: No Goal/Treatment Plan - Goal/Treatment Plan Need for Continued Stay: Discharge may exacerbated symptoms, Severe functional impairment Progress Toward Problem(s) and Goals/Treatment Plan: Opioids: Subutex detox As needed medications Gabapentin for augmentation Attend groups and activities Supportive therapy and psychoeducation [place] for abstinence CBT for relapse prevention Encourage MAT Refer to rehab or IOP Attend self-help groups as well Alcohol: CBT for relapse prevention medical issues: Continue meds Consult as needed Depressive d/o: He agreed to resume zoloft CBT and supportive tx Estimated Date of D/C: 05/19/17
[2017-05-17] MEDS: Aritificial Tears (15ml) OU SCH ×2 (14:00→17:07)
[2017-05-17] MEDS ORDERED: Magnesium Hydroxide Susp 30 ml UD PO ONE (21:39)
[2017-05-18] MEDS: Aritificial Tears (15ml) OU SCH ×3 (09:33→19:12)
[2017-05-18] MEDS: Buprenorphine Hydrochloride 2 mg SL SCH (09:36)
--- NOTE | 2017-05-18 12:43 | PCM.PYCHPN ---
Psychiatric Progress Note - Psychiatric Progress Note Patient seen today, length of contact: 16 min Patient Chief Complaint: "I have anxiety" Problems Identified/Issues Discussed: The pt is seen, chart reviewed, case discussed with staff. Support given, CBT and [place] used briefly No new symptoms reported, improving slowly and needs more time No SEs from medications, risks discussed. After care discussed Medication Change: Yes Medical Record Reviewed: Yes Mental Status Examination - Cognitive Function Orientation: Person, Place, Situation, Time Memory: Intact Attention: WNL Concentration: WNL Association: WNL Fund of Knowledge: WNL - Mood Mood: Anxious - Affect Affect: Constricted - Speech Speech: Appropriate - Formal Thought Process Formal Thought Process: No Impairment - Suicidal Ideation Suicidal Ideation: No - Homicidal Ideation Homicidal Ideation: No Goal/Treatment Plan - Goal/Treatment Plan Need for Continued Stay: Discharge may exacerbated symptoms, Severe functional impairment Progress Toward Problem(s) and Goals/Treatment Plan: Opioids: Subutex detox As needed medications Gabapentin for augmentation Attend groups and activities Supportive therapy and psychoeducation [place] for abstinence CBT for relapse prevention Encourage MAT Refer to rehab or IOP Attend self-help groups as well Alcohol: CBT for relapse prevention medical issues: Continue meds Consult as needed Depressive d/o: He agreed to resume zoloft CBT and supportive tx Estimated Date of D/C: 05/19/17
[2017-05-18 16:42] VITALS: RESP 18
[2017-05-19] MEDS: Aritificial Tears (15ml) OU SCH (10:02)
[2017-05-19] MEDS: Buprenorphine Hydrochloride 2 mg SL SCH (10:03)
[2017-05-19 13:16] VITALS: BP 109/75; PULSE 67; TEMP 98.5; O2SAT 96
--- NOTE | 2017-05-19 17:35 | PCM.PYCHDC ---
Mental Status Examination - Mental Status Examination Orientation: Person Discharge Summary - Discharge Note Consultations:: List each consultation separately and include: 1. Reason for request. 2. Findings. 3. Follow-up Summary of Hospital Course include:: 1. Description of specific treatment plan utilized for patients during their course of treatmen. 2. Summarize the time- course for resolution of acute symptoms and/or regressed behaviors. 3. Describe issues identified and worked on during hospitalization. 4. Describe medication utilized. 5. Describe medical problems identified and treated. 6. Reassessment of suicide risk Summary of Hospital Course: The patient was admitted and started on treatment with psychotherapy, support, psychoeducation and medications. [place] and CBT used. The patient attended groups and activities, as well as milieu therapy. All the risks and benefits of medications are discussed and the patient understood and agreed. The patient improved with the treatments provided. After care discussed with the patient. - Diagnosis (1) Opioid use disorder, severe, dependence Status: Acute (2) Alcohol dependence Status: Acute - Final Diagnosis (DSM 5) Condition upon Discharge: STABLE DSM 5: Opioid withdrawal Opioid use d/o - severe Depressive d/o - unspecified Alcohol use d/o in early remission Disposition: HOME/ ROUTINE Follow-up Treatment Plan: Continue below medications after discharge. Follow after care plan as discussed. Use relapse prevention skills. Return to ED or call 911 if suicidal, homicidal or symptoms relapse. Stay away from stress, alcohol and drugs. See primary doctor once a year. Prescriptions/Medication Reconciliation: Mirtazapine [Remeron] 30 mg PO HS #30 tab traZODone [Desyrel] 100 mg PO HS PRN #30 tab PRN Reason: Insomnia
== END 2017-05-19 13:50 | disposition home or self-care (01) | DRG 745 ==
LOC: C.ER 13:15 → C.7D 16:32
PROVIDERS: ADMIT Psychiatry & Neurology Psychiatry; ATTEND Psychiatry & Neurology Psychiatry
PROC: HZ2ZZZZ Detoxification Services for Substance Abuse Treatment (ICD-10-PCS; principal; 2017-05-16)
PROC: HZ52ZZZ Individual Psychotherapy for Substance Abuse Treatment, Cognitive-Behavioral (ICD-10-PCS; 2017-05-16)
PROC: HZ42ZZZ Group Counseling for Substance Abuse Treatment, Cognitive-Behavioral (ICD-10-PCS; 2017-05-16)
PROC: HZ59ZZZ Individual Psychotherapy for Substance Abuse Treatment, Supportive (ICD-10-PCS; 2017-05-16)
PROC: HZ56ZZZ Individual Psychotherapy for Substance Abuse Treatment, Psychoeducation (ICD-10-PCS; 2017-05-16)
PROC: HZ46ZZZ Group Counseling for Substance Abuse Treatment, Psychoeducation (ICD-10-PCS; 2017-05-16)
DX: F11.23 Opioid dependence with withdrawal (principal); F10.230 Alcohol dependence with withdrawal, uncomplicated; Y90.0 Blood alcohol level of less than 20 mg/100 ml; F32.9 Major depressive disorder, single episode, unspecified

== ENCOUNTER 2018-08-15 16:59 | Inpatient (IN) | payer MEDICAID ==
[2018-08-15 18:31] LABS: BASO % 0.6 % (0.0-2.0); EOS # 0.1 K/uL (0.0-0.7); EOS % 1.4 % (0.0-4.0); HEMOGLOBIN 15.1 g/dL (12.0-18.0); LYMPH # 3.5 K/uL (1.0-4.3); LYMPH % 49.6 % (20.0-40.0); MEAN CORPUSCULAR HEMOGLOBIN 30.1 pg (27.0-31.0); MEAN CORPUSCULAR HGB CONC 33.5 g/dL (33.0-37.0); MEAN PLATELET VOLUME 7.9 fL (7.2-11.7); MONO # 0.6 K/uL (0.0-0.8); MONO % 7.8 % (0.0-10.0); NEUT # 2.9 K/uL (1.8-7.0); NEUT % 40.6 % (50.0-75.0); RBC 5.01 Mil/uL (4.40-5.90)
[2018-08-15 18:48] LABS: ALB/GLOB RATIO 1.4 (1.0-2.1); ALBUMIN 4.3 g/dL (3.5-5.0); ALT/SGPT 70 U/L (21-72); AST/SGOT 76 U/L (17-59); BLOOD UREA NITROGEN 17 mg/dL (9-20); CALCIUM 9.1 mg/dl (8.6-10.4); GFR NON-AFRICAN AMERICAN > 60
[2018-08-15 19:59] LABS: URINE BACTERIA RARE (<OCC); URINE BILIRUBIN NEGATIVE (NEGATIVE); URINE BLOOD NEGATIVE (NEGATIVE); URINE CALCIUM OXALATE CRYSTALS RARE /hpf (<OCC); URINE CLARITY Clear (Clear); URINE COLOR Yellow (YELLOW); URINE GLUCOSE (UA) NORMAL (Normal); URINE LEUKOCYTE ESTERASE NEG Leu/uL (Negative); URINE PROTEIN NEGATIVE (NEGATIVE); URINE UROBILINOGEN NORMAL mg/dL (0.2-1.0)
[2018-08-15 20:01] LABS: BARBITURATES, UR NEGATIVE (NEGATIVE); BENZODIAZEPINES, UR POSITIVE (NEGATIVE); OPIATES, UR POSITIVE (NEGATIVE); PHENCYCLIDINE, UR NEGATIVE (NEGATIVE)
--- NOTE | 2018-08-15 20:18 | C.PDOC ---
History Of Present Illness 58 year old male with PMHx of polysubstance abuse presents to the ED requesting detox. Patient states he used heroin, cocaine and alcohol. Patient states his last use was this afternoon [employer]. Patient has history of diabetes and asthma taking Metformin once a day. Patient denies SI/HI, hallucination, fever, chills, nausea, vomit, CP, SOB, weakness, numbness. Time Seen by Provider: 08/15/18 17:47 Chief Complaint (Nursing): Substance Abuse History Per: Patient History/Exam Limitations: intoxication Onset/Duration Of Symptoms: Hrs Current Symptoms Are (Timing): Still Present Suicide/Self Injury Attempted (Context): None Modifying Factor(s): Alcohol, Cocaine, Other (Heroin) Associated Symptoms: denies: Depression, Suicidal Thoughts, Suicidal Plan Recent travel outside of the [place]: No Additional History Per: Patient Past Medical History Reviewed: Historical Data, Nursing Documentation, Vital Signs Vital Signs: Last Vital Signs Temp 98 F 08/15/18 17:05 Pulse 99 H 08/15/18 17:05 Resp 18 08/15/18 17:05 BP 164/96 H 08/15/18 17:05 Pulse Ox 96 08/15/18 17:05 - Medical History PMH: Asthma, Benign Prostatic Hyperplasia, Depression, Diabetes (per pt), Hepatitis (C), HTN, Sexually Transmitted Disease Denies: HIV, Seizures Surgical History: No Surg Hx - [facility] Procedures DETOXIFICATION SERVICES FOR SUBSTANCE ABUSE TREATMENT (02/20/18) GROUP ORTHOPHOTO TECH/DRAFTSMAN FOR SUBSTANCE ABUSE TREATMENT, PSYCHOEDUCATION (02/20/18) GROUP ORTHOPHOTO TECH/DRAFTSMAN FOR SUBSTANCE ABUSE, COGNITIVE BEHAVIORAL (05/15/17) GROUP PSYCHOTHERAPY (02/20/18) INDIV ORTHOPHOTO TECH/DRAFTSMAN FOR SUBSTANCE ABUSE TREATMENT, PSYCHOEDUCATION (12/21/16) INDIV ORTHOPHOTO TECH/DRAFTSMAN FOR SUBSTANCE ABUSE, COGNITIVE BEHAVIORAL (12/21/16) INDIV PSYCHOTHERAPY FOR SUBSTANCE ABUSE TREATMENT, SUPPORT (02/20/18) INDIV PSYCHOTHERAPY FOR SUBSTANCE ABUSE, COGNITIV BEHAVIORAL (05/15/17) INDIV PSYCHOTHERAPY FOR SUBSTANCE ABUSE, PSYCHOEDUCATION (05/15/17) INDIVIDUAL PSYCHOTHERAPY, SUPPORTIVE (02/20/18) MEDICATION MANAGEMENT (02/20/18) Family History: States: Unknown Family Hx - Social History Hx Alcohol Use: Yes Hx Substance Use: Yes - Immunization History Hx Influenza Vaccination: No Review Of Systems Constitutional: Negative for: Fever, Chills Cardiovascular: Negative for: Chest Pain, Palpitations Respiratory: Negative for: Shortness of Breath Gastrointestinal: Negative for: Nausea, Vomiting, Abdominal Pain Skin: Negative for: Rash Psych: Negative for: Depression, Suicidal ideation Physical Exam - Physical Exam Appears: Non-toxic, No Acute Distress Skin: Normal Color, Warm, Dry Head: Atraumatic, Normacephalic Eye(s): bilateral: Normal Inspection Oral Mucosa: Moist Neck: Normal ROM, Supple Chest: Symmetrical Cardiovascular: Rhythm Regular Respiratory: Normal Breath Sounds, No Rales, No Rhonchi, No Wheezing Gastrointestinal/Abdominal: Soft, No Tenderness, No Guarding, No Rebound Extremity: Normal ROM, No Tenderness, No Swelling Neurological/Psych: Oriented x3, Normal Speech, Normal Cognition Gait: Steady ED Course And Treatment - Laboratory Results Result Diagrams: 18 18:21 12 18:21 Lab Interpretation: No Acute Changes O2 Sat by Pulse Oximetry: 96 (ON RA) Pulse Ox Interpretation: Normal Progress Note: Patient is medically cleeared for detox admission. Medical Decision Making Medical Decision Making: Plan: * Labs * UA * Crisis Disposition - Disposition Disposition: HOSPITALIZED Disposition Time: 20:17 Condition: STABLE - POA Present On Arrival: None - Clinical Impression Clinical Impression: Polysubstance abuse - Scribe Statement The provider has reviewed the documentation as recorded by the Scribe Ruperto March All medical record entries made by the Scribe were at my direction and pe rsonally dictated by me. I have reviewed the chart and agree that the record accurately reflects my personal performance of the history, physical exam, medical decision making, and the department course for this patient. I have also personally directed, reviewed, and agree with the discharge instructions and disposition.
--- NOTE | 2018-08-15 20:50 | PCM.BM ---
<Romeo Salinas - Last Filed: 08/15/18 20:50> Treatment Plan Problems - Problems identified on initial assessmt potential for alcohol withdrawal Date Initiated: 08/15/18 Time Initiated: 20:49 Status: Active potential for opiate withdrawal Date Initiated: 08/15/18 Time Initiated: 20:50 Status: Active Treatment assets and liabiliti Patient Assests: self-reliant, ADL independent, negotiates basic needs, cognitively intact Patient Liabilities: substance abuse, medical problems - Milieu Protocol Maintain good personal hygiene: daily Encourage regular showers, daily Remind patient to perform daily oral care, daily Assist patient to perform ADL's Conduct patient checks and document Observation sheet: Q15 minutes Maintain personal safety: every shift Educate patient to report safety concerns to staff, every shift Monitor environment for contraband/sharps Medication safety: Monitor for expected outcome, potential side effects: every shift, Assess barriers to learning: every shift, Assess readiness for medication education: every shift <Elizabeth Sheets - Last Filed: 08/16/18 13:34> Family Contact Family involvement: Famliy/SO not involved - Goals for Treatment Patient goals for treatment: Complete detox and resume o/p program at [facility]. Discharge/Continuing Care - Education Needs Education Needs: Patient Medication, Patient Diagnosis/Disease Process, Patient Coping Skills, Patient Anger Management skills, Patient Placement options, Patient Community resources - Discharge Discharge Criteria: Free of agitation, No longer exhibiting s/s of withdrawal, Reduction of target symptoms Discharge to:: Home - Treatment Team Participation Patient/Family/SO Statement: 08/16/18 13:35 "I like Mr. Villagomez. He's a good counselor. I wanna wipe the slate clean and go back there..." Discussed with Family/SO: No Was Patient/Family/SO present at Treatment Team Meeting: Yes <Lilliam Chao - Last Filed: 08/19/18 09:14> - Diagnosis (1) Alcohol dependence Status: Acute Interventions: 08/18/18 19:14 * Assess 7x/week regarding severity of withdrawal * Educate regarding risks, benefits, side effects and alternatives of medications * Use Motivational Interviewing for abstinence * Use CBT for relapse prevention * Medication management for withdrawal symptoms * Encourage medication assisted treatment * (2) Opioid use disorder, severe, dependence Status: Acute Interventions: 08/17/18 19:14 * Assess 7x/week regarding severity of withdrawal * Educate regarding risks, benefits, side effects and alternatives of medications * Use Motivational Interviewing for abstinence * Use CBT for relapse prevention * Medication management for withdrawal symptoms * Encourage medication assisted treatment *
[2018-08-16] MEDS ORDERED: Aluminum Hydroxide/Magnesium Hydroxide Susp (30 mL) PO PRN (02:05)
[2018-08-16] MEDS: Multiple Vitamins Tab PO SCH (09:52)
--- NOTE | 2018-08-16 10:09 | PCM.PSYCH ---
Initial Psychiatric Evaluation - Initial Psychiatric Evaluation Type of Admission: Voluntary Legal Status: Capacity Chief Complaint (in patient's own words): "I need detox" History of Present Illness and Precipitating Events: He is known from previous admissions. He is a 58 yo AAM, single with 2 children, lives alone, on disability for "sciatica" and back problem. He is here for depression and opioid and alcohol detox. He reports mild anhedonia, dep mood, neuroveg sxs but no SI. He claims he is using 8--10 bags of heroin intranasally x20 years "off and on," and crack cocaine 3x/week. He admits to not going to any program. Has wdw sxs. Detox 6x, rehab 3x He also used to drink 4-5 shots and now drinks 1 pint a day, used xanax in the past No jorge or psychosis No other drugs, smokes 1/2 ppd cig Past psych hx: 3x admissions. One sandhya attempt in 1997 by cutting Family psych hx: Brother used cocaine and had psych illness Medical hx: DM, HTN and BPH, also back problems (hernia? sciatica?) Current Medications: Active Medications Generic Name Dose Route Start Last Admin Trade Name Freq PRN Reason Stop Dose Admin Al Hydrox/Mg Hydrox/Simethicone 30 ml 08/16/18 02:05 Maalox 30 Ml PO TID PRN Indigestion / Heartburn Albuterol 1 puff 08/16/18 14:00 Ventolin Hfa 90 Mcg/Actuation (8 G) INH RQ6 PRN Shortness of Breath Aspirin 81 mg 08/16/18 10:00 08/16/18 09:52 Aspirin Chewable PO 81 mg DAILY IQRA Administration Chlordiazepoxide 25 mg 08/16/18 02:04 Librium PO Q4H PRN Alcohol Withdrawal Chlordiazepoxide 25 mg 08/16/18 10:00 08/16/18 09:52 Librium PO 08/21/18 09:59 25 mg Q6 IQRA Administration Taper Clonidine HCl 0.1 mg 08/16/18 02:04 Catapres PO Q4H PRN Symptoms of alcohol withdrawl Folic Acid 1 mg 08/16/18 10:00 08/16/18 09:52 Folic Acid PO 1 mg DAILY IQRA Administration Lisinopril 10 mg 08/16/18 10:00 08/16/18 09:52 Zestril PO 10 mg DAILY IQRA Administration Loperamide HCl 2 mg 08/16/18 02:05 Imodium PO Q8 PRN Diarrhea Metformin HCl 1,000 mg 08/16/18 10:00 08/16/18 09:51 Glucophage PO 1,000 mg DAILY IQRA Administration Mirtazapine 15 mg 08/16/18 22:00 Remeron PO HS [facility] Multivitamins 1 tab 08/16/18 10:00 08/16/18 09:52 Hexavitamin PO 1 tab DAILY IQRA Administration Ondansetron HCl 4 mg 08/16/18 02:05 Zofran Tab PO Q8 PRN Nausea/Vomiting Pseudoephedrine HCl 60 mg 08/16/18 02:05 Sudafed Tab PO QID PRN Nasal/Sinus Congestion Sertraline HCl 50 mg 08/16/18 10:00 08/16/18 09:52 Zoloft PO 50 mg DAILY IQRA Administration Tamsulosin HCl 0.4 mg 08/16/18 10:00 Flomax PO DAILY [facility] Thiamine HCl 100 mg 08/16/18 10:00 08/16/18 09:52 Vitamin B1 Tab PO 100 mg DAILY IQRA Administration Trazodone HCl 50 mg 08/16/18 02:04 Desyrel PO HS PRN Insomnia Past Psychiatric History - Past Psychiatric History Previous Treatment History: None Pertinent Medical Hx (Current Medical&Sleep Prob, Allergies): Allergies Allergy/AdvReac Type Severity Reaction Status Date / Time No Known Allergies Allergy Verified 02/20/18 18:53 Mirtazapine [Remeron] 15 mg PO HS #30 tab 01/03/17 Albuterol HFA [Ventolin HFA 90 mcg/actuation (8 g)] 1 puff INH RQ6 PRN #1 inhaler 02/28/18 Lisinopril [Zestril] 10 mg PO DAILY #30 tab 02/28/18 Sertraline [Zoloft] 50 mg PO DAILY #30 tab 02/28/18 traZODone [Desyrel] 100 mg PO HS PRN #30 tab 02/28/18 Aspirin [Aspirin Chewable] 81 mg PO DAILY 08/15/18 Atorvastatin [Lipitor] 10 mg PO HS 08/15/18 Tamsulosin [Flomax] 0.4 mg PO DAILY 08/15/18 metFORMIN [glucOPHAGE] 1,000 mg PO DAILY 08/15/18 Review of Systems - Psychiatric Psychiatric: Abnormal Sleep Pattern, Anxiety, Change in Appetite, Difficulty Concentrating. absent: Hallucinations, Homicidal Ideation, Paranoia, Suicidal Ideation Mental Status Examination - Personal Presentation Personal Presentation: Looks stated age - Affect Affect: Constricted - Motor Activity Motor Activity: Calm - Reliability in Providing Information Reliability in Providing Information: Good - Speech Speech: Organized - Mood Mood: Depressed, Anxious - Formal Thought Process Formal Thought Process: No Impairment - Cognitive Functions Orientation: Person, Place, Situation, Time Sensorium: Alert Attention/Concentration: Easily distracted Estimate of Intelligence: Average Judgement: Intact, as evidence by: Insight regarding need for hospitalization Memory: Recent intact, as evidence by: Ability to recall events of the day, Remote intact, as evidenced by: Abilit to recall sig. 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 Attend groups and activities Supportive therapy and psychoeducation [place] for abstinence CBT for relapse prevention Encourage MAT Refer to rehab or IOP, and self-help groups Teach healthy lifestyle methods, i.e. diet, exercise, meditation Smoking cessation with [place] Nicotine patch if needed 34 min Projected ELOS: 4-5 days - Smoking Cessation Smoking Cessation Initiated: Yes
[2018-08-16] MEDS ORDERED: Albuterol HFA 90 mcg/actuation (8 g) INH PRN (14:00)
[2018-08-16] MEDS ORDERED: Buprenorphine Hydrochloride 2 mg SL ONE ×5 (14:30→19:35)
[2018-08-17] MEDS: Multiple Vitamins Tab PO SCH (10:20)
[2018-08-17] MEDS: Buprenorphine Hydrochloride 2 mg SL SCH (11:00)
--- NOTE | 2018-08-18 08:12 | PCM.PYCHPN ---
Psychiatric Progress Note - Psychiatric Progress Note Patient seen today, length of contact: 15 min Patient Chief Complaint: I am still withdrawing.' Problems Identified/Issues Discussed: Patient was seen and evaluated, chart reviewed and discussed with the staff. Patient still reports withdrawal symptoms including nausea, sweating and headaches. He remained isolated and withdrawn, however he denies any feelings of hopelessness and helplessness. He denies any suicidal ideation or homicidal ideation. He denies any auditory hallucinations or any paranoia. He is taking medication denies any side effects. Symptoms are improving but he needs to stay longer for further stabilization. Supportive therapy was given Medication Change: Yes Medical Record Reviewed: Yes Mental Status Examination - Cognitive Function Orientation: Person, Place, Situation, Time Memory: Intact Attention: WNL Concentration: Poor Association: WNL Fund of Knowledge: Poor - Mood Mood: Depressed, Anxious - Affect Affect: Constricted - Speech Speech: Soft - Formal Thought Process Formal Thought Process: No Impairment - Suicidal Ideation Suicidal Ideation: No - Homicidal Ideation Homicidal Ideation: No Goal/Treatment Plan - Goal/Treatment Plan Need for Continued Stay: Discharge may exacerbated symptoms Progress Toward Problem(s) and Goals/Treatment Plan: Opioid withdrawal Opioid use d/o - severe Cocaine use d/o - severe Alcohol withdrawal Alcohol use d/o - severe Sedative, 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 Attend groups and activities Supportive therapy and psychoeducation [place] for abstinence CBT for relapse prevention Encourage MAT Refer to rehab or IOP, and self-help groups Teach healthy lifestyle methods, i.e. diet, exercise, meditation Smoking cessation with [place] Nicotine patch if needed
[2018-08-18] MEDS: Multiple Vitamins Tab PO SCH (09:52)
[2018-08-18] MEDS: Buprenorphine Hydrochloride 2 mg SL SCH (09:54)
--- NOTE | 2018-08-19 09:15 | PCM.PYCHPN ---
Psychiatric Progress Note - Psychiatric Progress Note Patient seen today, length of contact: 17 min Patient Chief Complaint: "I am not well" Problems Identified/Issues Discussed: The pt is seen, chart reviewed, case discussed with staff. The pt is compliant with medications and reports no side-effects. Symptoms are improving but needs more time to stabilize. Pt attends groups and activities. Support given, psycho-education provided. After care discussed. Medication Change: Yes (detox changes daily) Medical Record Reviewed: Yes Mental Status Examination - Cognitive Function Orientation: Person, Place, Situation, Time Memory: Intact Attention: WNL Concentration: Poor Association: WNL Fund of Knowledge: WNL - Mood Mood: Depressed, Anxious - Affect Affect: Constricted - Speech Speech: Appropriate - Formal Thought Process Formal Thought Process: No Impairment - Suicidal Ideation Suicidal Ideation: No - Homicidal Ideation Homicidal Ideation: No Goal/Treatment Plan - Goal/Treatment Plan Need for Continued Stay: Discharge may exacerbated symptoms, Severe functional impairment Progress Toward Problem(s) and Goals/Treatment Plan: Taper with subutex and librium Gabapentin for augmentation if needed remeron for sleep and depressive sxs As needed medications All risks, benefits and alternatives of the meds discussed, and the pt agreed and understood. Attend groups and activities Supportive therapy and psychoeducation [place] for abstinence CBT for relapse prevention Encourage MAT Refer to rehab or IOP, and self-help groups Teach healthy lifestyle methods, i.e. diet, exercise, meditation Smoking cessation with [place] Nicotine patch if needed
--- NOTE | 2018-08-19 09:17 | CP.PCM.PCO ---
Physician Communication Note - Physician Communication Note Physician Communication Note: PLEASE SEE NOTE DATED 08/19 BY THE FIELD SALES CONSULTANT FOR TODAY'S SESSION.
[2018-08-19] MEDS: Multiple Vitamins Tab PO SCH (09:44)
[2018-08-19] MEDS: Buprenorphine Hydrochloride 2 mg SL SCH (09:44)
[2018-08-20] MEDS: Multiple Vitamins Tab PO SCH (10:17)
[2018-08-20] MEDS: Buprenorphine Hydrochloride 2 mg SL SCH (10:18)
--- NOTE | 2018-08-20 10:30 | PCM.PYCHDC ---
Mental Status Examination - Mental Status Examination Orientation: Person Discharge Summary - Discharge Note Consultations:: List each consultation separately and include: 1. Reason for request. 2. Findings. 3. Follow-up Summary of Hospital Course include:: 1. Description of specific treatment plan utilized for patients during their course of treatmen. 2. Summarize the time- course for resolution of acute symptoms and/or regressed behaviors. 3. Describe issues identified and worked on during hospitalization. 4. Describe medication utilized. 5. Describe medical problems identified and treated. 6. Reassessment of suicide risk Summary of Hospital Course: He is known from previous admissions. He is a 58 yo AAM, single with 2 children, lives alone, on disability for "sciatica" and back problem. He is here for depression and opioid and alcohol detox. He reports mild anhedonia, dep mood, neuroveg sxs but no SI. He claims he is using 8--10 bags of heroin intranasally x20 years "off and on," and crack cocaine 3x/week. He admits to not going to any program. Has wdw sxs. Detox 6x, rehab 3x He also used to drink 4-5 shots and now drinks 1 pint a day, used xanax in the past No jorge or psychosis No other drugs, smokes 1/2 ppd cig Past psych hx: 3x admissions. One sandhya attempt in 1997 by cutting Family psych hx: Brother used cocaine and had psych illness Medical hx: DM, HTN and BPH, also back problems (hernia? sciatica?) He will return to [facility]. - Diagnosis (1) Alcohol dependence Current Visit: No Status: Acute (2) Opioid use disorder, severe, dependence Current Visit: No Status: Acute - Final Diagnosis (DSM 5) Condition upon Discharge: STABLE Disposition: HOME/ ROUTINE Follow-up Treatment Plan: Taper with subutex and librium Gabapentin for augmentation if needed remeron for sleep and depressive sxs As needed medications All risks, benefits and alternatives of the meds discussed, and the pt agreed and understood. Attend groups and activities Supportive therapy and psychoeducation [place] for abstinence CBT for relapse prevention Encourage MAT Refer to rehab or IOP, and self-help groups Teach healthy lifestyle methods, i.e. diet, exercise, meditation Smoking cessation with [place] Nicotine patch if needed Prescriptions/Medication Reconciliation: Albuterol HFA [Ventolin HFA 90 mcg/actuation (8 g)] 1 puff INH RQ6 PRN #1 inhaler PRN Reason: Shortness Of Breath Aspirin [Aspirin Chewable] 81 mg PO DAILY #30 chew Atorvastatin [Lipitor] 10 mg PO HS #30 tab cloNIDine [Catapres] 0.1 mg PO BID PRN #7 tab PRN Reason: Symptoms Of Alcohol Withdrawl Lisinopril [Zestril] 10 mg PO DAILY #30 tab metFORMIN [glucOPHAGE] 1,000 mg PO DAILY #60 tab Mirtazapine [Remeron] 15 mg PO HS #30 tab Sertraline [Zoloft] 50 mg PO DAILY #30 tab Tamsulosin [Flomax] 0.4 mg PO DAILY #30 cap traZODone [Desyrel] 50 mg PO HS PRN #30 tab PRN Reason: Insomnia
[2018-08-20 11:45] VITALS: PULSE 58
[2018-08-20 12:24] VITALS: BP 117/77; RESP 20; TEMP 98.7; O2SAT 96
== END 2018-08-20 13:58 | disposition home or self-care (01) | DRG 745 ==
LOC: C.ER 16:59 → C.7D 20:16
PROVIDERS: ADMIT Psychiatry & Neurology Psychiatry; ATTEND Psychiatry & Neurology Psychiatry
PROC: HZ2ZZZZ Detoxification Services for Substance Abuse Treatment (ICD-10-PCS; principal; 2018-08-15)
PROC: HZ80ZZZ Medication Management for Substance Abuse Treatment, Nicotine Replacement (ICD-10-PCS; 2018-08-15)
PROC: GZ3ZZZZ Medication Management (ICD-10-PCS; 2018-08-15)
PROC: HZ59ZZZ Individual Psychotherapy for Substance Abuse Treatment, Supportive (ICD-10-PCS; 2018-08-15)
PROC: HZ46ZZZ Group Counseling for Substance Abuse Treatment, Psychoeducation (ICD-10-PCS; 2018-08-15)
DX: F11.23 Opioid dependence with withdrawal (principal); F10.239 Alcohol dependence with withdrawal, unspecified; F14.20 Cocaine dependence, uncomplicated; F13.10 Sedative, hypnotic or anxiolytic abuse, uncomplicated; F32.0 Major depressive disorder, single episode, mild; F17.210 Nicotine dependence, cigarettes, uncomplicated; E11.9 Type 2 diabetes mellitus without complications; J45.909 Unspecified asthma, uncomplicated; M54.30 Sciatica, unspecified side; I10 Essential (primary) hypertension; N40.0 Benign prostatic hyperplasia without lower urinary tract symptoms